=== PATIENT | male | born 1940 | race African-American/Black ===

== ENCOUNTER 2017-05-04 13:46 | Emergency (ER) | payer OTHER ==
--- NOTE | ~2017-05-04 | EKG ---
PATIENT: DIEGO ZARCO UNIT #: [id number] Ventricular Rate: 54 BPM Atrial Rate: 54 BPM P-R Interval: 226 ms QRS Duration: 104 ms Q-T Interval: 446 ms QTC Calculation(Bezet): 422 ms P [place]: 61 degrees Calculated R [place]: 56 degrees Calculated T [place]: 70 degrees Diagnosis Line: Sinus bradycardia with sinus arrhythmia with 1st Diagnosis Line: degree A-V block Diagnosis Line: Otherwise normal ECG Diagnosis Line: No previous ECGs available Diagnosis Line: Confirmed by RC WANG MD ([id number]) on Diagnosis Line: 05/06/2017 8:31:38 AM INTERPRETING MD: FELIPE PUGA
[2017-05-04] MEDS ORDERED: METFORMIN HCL500 M1 PO (14:02)
[2017-05-04] MEDS ORDERED: CRESTOR10 MG PO (14:03)
[2017-05-04] MEDS ORDERED: LOSARTAN POTAS100 MG PO (14:03)
[2017-05-04] MEDS ORDERED: ALDACTONE25 MG PO (14:05)
[2017-05-04] MEDS ORDERED: FLUOROMETHOLONE5 M1 OU (14:05)
[2017-05-04] MEDS ORDERED: AMIODARONE HCL200 MG PO (14:06)
[2017-05-04] MEDS ORDERED: METOPROLOL TAR25 MG PO (14:06)
[2017-05-04] MEDS ORDERED: XARELTO20 MG PO (14:07)
[2017-05-04] MEDS ORDERED: FLOMAX0.4 M1 PO (14:07)
[2017-05-04] MEDS ORDERED: VITAMIN D-32000 UNI2 (14:08)
[2017-05-04] MEDS ORDERED: POMEGRANATE250 MG PO (14:08)
== END 2017-05-04 14:44 | disposition home or self-care (01) ==
LOC: SED 13:46
DX: I10 Essential (primary) hypertension (principal); E11.9 Type 2 diabetes mellitus without complications; I48.91 Unspecified atrial fibrillation; Z79.84 Long term (current) use of oral hypoglycemic drugs; Z79.899 Other long term (current) drug therapy
CPT/HCPCS: 82947; 93005; 99284